=== PATIENT | male | born 1995 | race Caucasian/White ===

== ENCOUNTER 2018-11-25 06:57 | Emergency (ER) | payer OTHER ==
[~2018-11-25] VITALS: Ht 172.7 cm; Wt 74.8 kg
[2018-11-25 07:00] VITALS: BP 127/73
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
[2018-11-25 07:20] VITALS: BP 123/68
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
== END 2018-11-25 07:20 ==
LOC: MED 06:57
DX: Z04.1 Encounter for examination and observation following transport accident (principal); V89.2XXA Person injured in unspecified motor-vehicle accident, traffic, initial encounter; Y93.89 Activity, other specified; Y92.410 Unspecified street and highway as the place of occurrence of the external cause; Y99.8 Other external cause status
CPT/HCPCS: 99283